=== PATIENT | male | born 1935 | race Caucasian/White ===

== ENCOUNTER 2018-02-16 14:09 | Emergency (ER) | END 2018-02-16 19:17 | disposition home or self-care (01) ==

== ENCOUNTER 2018-09-26 11:01 | Emergency (ER) | payer MEDICARE, OTHER ==
[~2018-09-26] VITALS: Ht 175.3 cm; Wt 87.0 kg
[~2018-09-26 11:01] MED LIST: BACI3.5O19 RIGHT EYE; CLIN300C10 PO
[2018-09-26 11:04] VITALS: BP 123/65; PULSE 93; RESP 20; Ht 175.3 cm; Wt 87.0 kg
[2018-09-26] MEDS ORDERED: LEVO50TA71 PO (13:45)
[2018-09-26] MEDS ORDERED: METF500T24 PO (13:45)
[2018-09-26] MEDS ORDERED: SIMV20TA PO (13:45)
[2018-09-26] MEDS ORDERED: MEMA1CAP3 PO (13:46)
--- NOTE | 2018-09-26 14:14 | ERD ---
ER Documentation Chief Complaint Chief Complaint cough, decreased appetite, and generalized weakness x 1 week HPI This is an 83-year-old male with a past medical history of hyperthyroidism, diabetes, hypothyroidism, dementia who is presenting with a cough. The patient is felt unwell for approximately 1 week. He has felt fatigued and generally weak. He has had a slightly decreased appetite. The patient's family reports that his symptoms have actually been improving, but the cough has persisted, which was concerning. They wanted to make sure he did not have pneumonia. The patient denies fever or chills. He denies any pain. He denies any shortness of breath or any trouble breathing. The patient denies feeling sick recently. The patient denies fever or chills. The patient has had no headache or vision changes. The patient does not endorse neck or back pain. The patient denies lightheadedness or dizziness. The patient denies nausea or vomiting. The patient denies abdominal pain. The patient denies changes to bowel movements or urination. The patient has had no focal deficits. The patient has had no weakness or numbness or tingling to the face or extremities. ROS All systems reviewed and are negative except as per history of present illness. Medications Home Meds Reported Medications Memantine HCl/Donepezil HCl (Namzaric 28 mg-10 mg Capsule) 1 Each Cap.spr.24, 1 EACH PO DAILY 09/26/18 Simvastatin* (Zocor*) 20 Mg Tablet, 20 MG PO QHS, #30 TAB 09/26/18 Metformin Hcl* (Metformin Hcl*) 500 Mg Tablet, 500 MG PO WITH BREAKFAST, #30 TAB 09/26/18 Levothyroxine Sodium* (Levoxyl*) 50 Mcg Tablet, 50 MCG PO BEFORE BREAKFAST, #30 TAB 09/26/18 Discontinued Scripts Bacitracin-Polymyxin* (Bacitracin-Polymyxin* Eye Oint) 3.5 Gm Oint..gm., 1 APPLIC RIGHT EYE TID, #7 TUB Prov:LAWRENCE TROY MD 02/16/18 Clindamycin Hcl* (Clindamycin Hcl*) 300 Mg Capsule, 300 MG PO Q6 for 7 Days, CAP Prov:LAWRENCE TROY MD 02/16/18 Allergies Allergies: Coded Allergies: No Known Allergy (Unverified , 09/26/18) PMhx/Soc History of Surgery: Yes (KNEE) Anesthesia Reaction: No Hx Neurological Disorder: Yes (DEMENTIA) Hx Respiratory Disorders: No Hx Cardiac Disorders: Yes (HIGH CHOLESTEROL) Hx Psychiatric Problems: No Hx Miscellaneous Medical Probl: Yes (PROSTATE CA, HYPOTHYROIDISM, DM) Hx Alcohol Use: No Hx Substance Use: No Hx Tobacco Use: No Smoking Status: Never smoker FmHx Family History: No diabetes Physical Exam Vitals Vital Signs Date Temp Pulse Resp B/P (MAP) Pulse Ox O2 O2 Flow FiO2 Time Delivery Rate 09/26/18 98.1 93 20 123/65 96 11:04 (84) Physical Exam Const: No acute distress Head: Atraumatic Eyes: Normal Conjunctiva ENT: Normal External Ears, Nose and Mouth. Neck: Full range of motion. No meningismus. Resp: Clear to auscultation bilaterally Cardio: Regular rate and rhythm, no murmurs Abd: Soft, non tender, non distended. Normal bowel sounds Skin: No petechiae or rashes Back: No midline or flank tenderness Ext: No cyanosis, or edema Neur: Awake and alert Psych: Normal Mood and Affect Result Diagram: 09/26/18 1154 09/26/18 1154 Results 24 hrs Laboratory Tests Test 09/26/18 11:54 White Blood Count 9.0 10^3/ul Red Blood Count 4.57 10^6/ul Hemoglobin 13.8 g/dl Hematocrit 41.9 % Mean Corpuscular Volume 91.7 fl Mean Corpuscular Hemoglobin 30.2 pg Mean Corpuscular Hemoglobin Concent 32.9 g/dl Red Cell Distribution Width 13.4 % Platelet Count 245 10^3/UL Mean Platelet Volume 10.5 fl Immature Granulocytes % 0.200 % Neutrophils % 67.0 % Lymphocytes % 21.2 % Monocytes % 8.7 % Eosinophils % 2.1 % Basophils % 0.8 % Nucleated Red Blood Cells % 0.0 /100WBC Immature Granulocytes # 0.020 10^3/ul Neutrophils # 6.0 10^3/ul Lymphocytes # 1.9 10^3/ul Monocytes # 0.8 10^3/ul Eosinophils # 0.2 10^3/ul Basophils # 0.1 10^3/ul Nucleated Red Blood Cells # 0.0 10^3/ul Prothrombin Time 12.7 Sec Prothrombin Time Ratio 1.0 INR International Normalized Ratio 0.94 Sodium Level 143 mmol/L Potassium Level 4.6 mmol/L Chloride Level 108 mmol/L Carbon Dioxide Level 26 mmol/L Anion Gap 9 Blood Urea Nitrogen 26 mg/dl Creatinine 0.70 mg/dl Est Glomerular Filtrat Rate mL/min mL/min Glucose Level 121 mg/dl Calcium Level 9.5 mg/dl Troponin I < 0.012 ng/ml Procedures/MDM MDM The patient's presentation warrants further investigation. Previous medical records, if available, were reviewed. LABS The patient's laboratory testing was obtained and reviewed. No emergent treatment was required unless described below. CBC: No E/o systemic infection or severe anemia or thrombocytopenia Chemistry: No E/o severe acidosis or alkalosis or renal failure or diabetic ketoacidosis PT/INR: No E/o significant coagulopathy Troponin: No E/o acute ischemia EKG EKG read by me: Rate/Rhythm: Regular rate and rhythm at a rate of 78 bpm Intervals: Prolonged ID interval indicating a first-degree AV block. Wide QRS in the setting of a right bundle branch block. [place]: Left axis deviation Impression: No evidence of acute ischemia IMAGING Imaging and Radiology interpretation reviewed. CXR FINDINGS: There is scarring of the right upper lobe and mild right lung volume loss. No focal airspace opacification, pleural effusion or pneumothorax is seen. The cardiomediastinal silhouette is within normal limits for size. The osseous structures demonstrate senescent changes. IMPRESSION: 1. Mild right lung volume loss and scarring of the right upper lobe. No si gnificant interval change. 2. No radiographic evidence of acute cardiopulmonary disease. Electronically viewed and signed by .Shantelle Razo MD, on 09/26/2018 12:19 TREATMENT/DISPOSITION The patient presents for a cough. The patient likely had an upper respiratory infection that is been improving. Patient's work-up is unremarkable. The patient is afebrile with unremarkable vital signs. He has no leukocytosis. I do not suspect a systemic infection. The patient is not septic and does not require a full septic work-up. I do not feel the patient would benefit from antibiotics. The patient does have a work-up that is consistent with dehydration. The patient will need to increase his oral hydration at home. I do not suspect pharyngitis or otitis media. I do not suspect pneumonia. I do not see any evidence of soft tissue infection. The patient does not have any findings concerning for an intra-abdominal pathology. DISCHARGE Upon reevaluation of the patient, symptoms have improved. No emergent diagnoses were identified. At this time, I feel that the patient stable for discharge. The patient was instructed to follow-up with a primary care physician in 1-3 days. The patient will be given strict precautions with which to return to the emergency department. Prescriptions: Tessalon Perles The patient's blood pressure was elevated at greater than 120/80 while in the emergency department. The patient was otherwise stable with no evidence of hypertensive urgency or emergency. The patient does not require admission for blood pressure control. I have discussed with the patient the risks of hypertension. I have instructed the patient to return to the ER for any new or worsening symptoms including chest pain, shortness of breath, headache, blurred vision, confusion, nausea, vomiting or LOC. I have advised the patient to follow up with the primary care physician for outpatient monitoring and treatment for hypertension in 1-3 days. Disclaimer: Inadvertent spelling and grammatical errors are likely due to EHR/dictation software use and do not reflect on the overall quality of patient care. Note that the electronic time recorded on this note does not necessarily reflect the actual time of the patient encounter. Departure Diagnosis: Primary Impression: Cough Additional Impressions: Upper respiratory infection URI type: unspecified URI Qualified Codes: J06.9 - Acute upper respiratory infection, unspecified Dehydration Normocytic anemia Condition: Stable Patient Instructions: Cough, Chronic, Uncertain Cause, (Adult), Dehydration, Preventing Common Respiratory Infections Additional Instructions: Thank you for for coming to [facility] for your care today. Please ask your nurse or provider if you have questions about your care today and do not leave until all your questions have been answered. Please use any medications given as directed and follow-up with your doctor (or the doctor you were referred to) in the next 1-3 days. If you do not have a primary care doctor you may follow up at the [facility] or [facility] (listed below). You may also use motrin and tylenol as needed for fever and/or pain unless in structed otherwise by your provider or nurse. Indications for more urgent follow-up have been discussed, but you may return to the Emergency Department at ANY time for any worrisome or worsening symptoms. If you have abdominal pain, please know that no test or exam you received is perfect and you should follow up within 8 hours for continued pain. If you had any imaging studies today, such as an X-Ray or CT Scan, these studies will be reviewed later by a radiologist. You will be called if there are important findings that were not identified today, so make sure the contact information you provided at registration is correct. If you received any narcotic pain control medicine today, such as Vicodin, Morphine or Dilaudid, your coordination and judgment may be affected for a number of hours. Please do not drive or operate heavy machinery, and you may want someone to assist you at home. If you were given a prescription for narcotic medication, be aware that it is very addictive- use sparingly and only if necessary. PLEASE SEEK FURTHER EVALUATION AND MANAGEMENT AT YOUR DOCTORS OFFICE WITHIN THE NEXT 1-3 DAYS. IT IS YOUR RESPONSIBILITY TO MAKE AN APPOINTMENT FOR FOLOW-UP CARE. IF YOU HAVE A PRIMARY DOCTOR, PLEASE CALL THEIR OFFICE TO SCHEDULE AN APPOINTMENT FOR FOLLOW UP. IF YOU DO NOT HAVE A PRIMARY DOCTOR YOU CAN CALL OUR PHYSICIAN REFERRAL HOTLINE AT IF YOU CAN NOT AFFORD TO SEE A PHYSICIAN YOU CAN CHOSE FROM THE FOLLOWING CRITICAL ACCESS HOSPITAL CLINICS: [facility] [address] [facility]. [facility] [address] [facility] [facility] [address] [facility] [facility] [address] [facility]. [facility] [address] [facility] [facility]. [address] MD September 26, 2018 14:14
[2018-09-26] MEDS ORDERED: BENZ-6 PO (14:15)
== END 2018-09-26 14:33 | disposition home or self-care (01) ==
LOC: E/R 11:01
DX: J06.9 Acute upper respiratory infection, unspecified (principal); E11.9 Type 2 diabetes mellitus without complications; E03.9 Hypothyroidism, unspecified; E86.0 Dehydration; D64.9 Anemia, unspecified; R55 Syncope and collapse; Z79.84 Long term (current) use of oral hypoglycemic drugs; Z85.46 Personal history of malignant neoplasm of prostate
CPT/HCPCS: 36415; 71045; 80048; 84484; 85025; 85610; 93005